=== PATIENT | female | born 1995 | race Caucasian/White ===

== ENCOUNTER 2019-06-25 14:10 | Emergency (ER) | payer MEDICAID, OTHER ==
[~2019-06-25] VITALS: Ht 152.4 cm; Wt 149.7 kg
[2019-06-25 14:24] VITALS: BP 151/92
[2019-06-25 14:58] VITALS: BP 135/89
== END 2019-06-25 14:58 | disposition home or self-care (01) ==
LOC: MED 14:10
DX: H66.92 Otitis media, unspecified, left ear (principal); I10 Essential (primary) hypertension
CPT/HCPCS: 99283

== ENCOUNTER 2020-07-22 18:10 | Emergency (ER) | payer MEDICAID ==
[~2020-07-22] VITALS: Ht 165.1 cm; Wt 136.1 kg
[2020-07-22 18:18] VITALS: BP 146/79
--- NOTE | 2020-07-22 18:47 | NUR ---
25 Y/O F BIB SELF FROM HOME, PATIENT PRESENTS TO ED WITH ABD PAIN BOTH UPPER QUADRANTS AND NAUSEA THAT STARTED LAST NIGHT. PT DENIES VOMITING, DIARRHEA AND COSTIPATION, LAST BM WAS THIS MORNING; SKIN IS PINK/WARM/DRY; AAOX4 WITH EVEN AND STEADY GAIT; LUNGS CLEAR BL; HR EVEN AND REGULAR; PT DENIES ANY FEVER, CP, SOB, OR COUGH AT THIS TIME; PATIENT STATES PAIN OF 3/10 AT THIS TIME; VSS; PATIENT POSITIONED FOR COMFORT; HOB ELEVATED; BEDRAILS UP X2; BED DOWN. ER MD MADE AWARE OF PT STATUS. PMH: ASTHMA NKA
[2020-07-22 19:09] LABS: BASOPHILS # (AUTO) 0.1 K/uL (0.00-0.22); BASOPHILS % (AUTO) 0.6 % (0.0-2.0); EOSINOPHILS # (AUTO) 0.2 K/uL (0-0.4); EOSINOPHILS % (AUTO) 1.6 % (0.0-4.0); HEMATOCRIT 38.8 % (36-48); LYMPHOCYTES # (AUTO) 3.5 K/uL (2.5-16.5); LYMPHOCYTES % (AUTO) 36.2 % (20.5-51.1); MEAN CORPUSCULAR HEMOGLOBIN 30 pg (27-31); MEAN CORPUSCULAR HGB CONC 33 g/dL (33-37); MEAN CORPUSCULAR VOLUME 89.4 fL (80-94); MONOCYTES # (AUTO) 0.7 K/uL (0.8-1.0); MONOCYTES % (AUTO) 7.1 % (1.7-9.3); NEUTROPHILS # (AUTO) 5.3 K/uL (1.8-7.7); NEUTROPHILS % (AUTO) 54.5 % (42.2-75.2); PLATELET COUNT (AUTO) 345 K/uL (140-450); RED BLOOD CELL COUNT(AUTO) 4.34 MIL/uL (4.20-5.40); RED CELL DISTRIBUTION WIDTH 13.2 % (11.6-13.7); WHITE BLOOD COUNT (AUTO) 9.7 K/uL (4.8-10.8)
--- NOTE | 2020-07-22 19:12 | NUR ---
Pt report given to ADALID RAMIREZ AND IAN RAMIREZ. Transfer of care at this time.
--- NOTE | 2020-07-22 19:21 | NUR ---
Dr. Eduardo examining patient.
[2020-07-22 19:22] LABS: ALBUMIN 3.5 g/dL (3.4-5.0); ANION GAP 8.8 (8-16); CARBON DIOXIDE 32.2 mmol/L (21-32); CREATININE 0.8 mg/dL (0.6-1.3)
[2020-07-22] MEDS ORDERED: ALUMINUM HYD/MAG/SIMETHICONE 30 ML UDC PO ONE ×2 (19:30→20:00)
[2020-07-22 20:14] LABS: TOTAL BILIRUBIN 0.4 mg/dL (0.0-1.0)
[2020-07-22] MEDS ORDERED: PANT40EC PO (20:18)
[2020-07-22 20:37] VITALS: BP 131/70
--- NOTE | 2020-07-22 20:37 | NUR ---
PT. LEFT WITHOUT DISCHARGE PAPERS.
== END 2020-07-22 20:37 | disposition left against medical advice (07) ==
LOC: MED 18:10
DX: R10.13 Epigastric pain (principal); R11.0 Nausea; J45.909 Unspecified asthma, uncomplicated
CPT/HCPCS: 36415; 80053; 83690; 85025; 99284